=== PATIENT | female | born 2000 | race Two or more races ===

== ENCOUNTER 2021-08-14 13:51 | Outpatient (CLI) | payer OTHER | END 2021-08-14 14:00 | disposition home or self-care (01) | LOC: RAD 13:51 | DX: M54.51 Vertebrogenic low back pain (principal); M99.03 Segmental and somatic dysfunction of lumbar region ==

== ENCOUNTER 2021-09-18 10:50 | Outpatient (CLI) | payer OTHER | END 2021-09-18 11:00 | disposition home or self-care (01) | LOC: RAD 10:50 | DX: M25.571 Pain in right ankle and joints of right foot (principal) ==

== ENCOUNTER 2025-07-26 11:48 | Emergency (ER) | payer OTHER ==
[~2025-07-26] VITALS: Ht 180.3 cm; Wt 93.0 kg
[2025-07-26] MEDS ORDERED: ALBUTEROL SULFATE 3 ML/2.5 MG AMPUL.NEB IH SCH (12:15)
[2025-07-26 13:28] LABS: COVID-19 AG NEGATIVE (NEGATIVE)
== END 2025-07-26 14:50 | disposition home or self-care (01) ==
LOC: ER 11:49 → EDSEX 12:06 → ER 14:50
PROVIDERS: Emergency Medicine
DX: J20.8 Acute bronchitis due to other specified organisms (principal); Z20.822 Contact with and (suspected) exposure to COVID-19